=== PATIENT | male | born 1955 | race Caucasian/White ===

== ENCOUNTER 2020-05-16 07:14 | Outpatient (CLI) | payer OTHER, SELFPAY ==
[2020-05-17 20:38] LABS: COVID-19 RT-PCR Result NEGATIVE (Negative)
== END 2020-05-16 07:34 ==
PROVIDERS: PCP Family Medicine Adult Medicine; Visit Provider Family Medicine
DX: Z11.59 Encounter for screening for other viral diseases (principal); Z01.811 Encounter for preprocedural respiratory examination
CPT/HCPCS: U0003

== ENCOUNTER 2020-05-19 00:04 | Outpatient (CLI) | payer OTHER, SELFPAY ==
[2020-05-19] MEDS: Albuterol HFA 18 GM 200 PUFF INH IH (11:02)
[2020-05-19] MEDS: Inhaler, Assist Device 1 EACH MC (11:02)
--- NOTE | 2020-06-01 16:03 | W.PFT ---
Date of service: 05/19/20 Time of Service: 10:05 Pulmonary Function Test Result Interpretation Spirometry: Severe obstructive airways disease with significant bronchodilator response Lung Volumes: No evidence of restriction. Moderate hyperinflation and air trapping Diffusion Capacity: Severely reduced which is moderately reduced when corrected to alveolar volume Airway Pressure: Markedly elevated Impression Severe obstructive airways disease with significant bronchodilator response this is associated with moderate hyperinflation and air trapping and severe diffusion defect. Airways resistance is markedly elevated Clinical Correlation therefore is recommended.
== END 2020-05-19 00:24 ==
PROVIDERS: PCP Family Medicine Adult Medicine; Visit Provider Internal Medicine Pulmonary Disease
DX: J44.9 Chronic obstructive pulmonary disease, unspecified (principal)
CPT/HCPCS: 94060; 94726; 94729